=== PATIENT | female | born 1970 | race Caucasian/White ===

== ENCOUNTER 2017-05-26 21:29 | Emergency (ER) | payer OTHER ==
[~2017-05-26] VITALS: Ht 154.9 cm; Wt 88.2 kg
[~2017-05-26 21:29] MED LIST: BENA20 PO; LEVO150 PO; LOVA10TA2 PO; PANT40TA25 PO
[2017-05-26] MEDS ORDERED: LEVO200 PO (21:44)
[2017-05-26] MEDS ORDERED: OXYB5 PO (21:44)
[2017-05-26] MEDS ORDERED: IBUP-2070 PO (21:44)
[2017-05-26] MEDS ORDERED: LISI-660 PO (21:44)
[2017-05-26] MEDS ORDERED: MTH/1CAP7 PO (21:44)
[2017-05-26 22:09] LABS: BASOPHILS # (AUTO) 0.03 K/uL (0.00-0.20); BASOPHILS % (AUTO) 0.3 % (0.0-2.0); EOSINOPHILS # (AUTO) 0.44 K/uL (0.00-0.70); EOSINOPHILS % (AUTO) 4.79 % (1.0-6.0); HEMATOCRIT 38.9 % (36-46); LYMPHOCYTES # (AUTO) 2.3 K/uL (1.0-4.8); LYMPHOCYTES % (AUTO) 25.1 % (22.0-44.0); MEAN CORPUSCULAR HEMOGLOBIN 30.7 pg (26.0-34.0); MEAN CORPUSCULAR HGB CONC 33.3 G/dL (31.0-37.0); MEAN CORPUSCULAR VOLUME 92 fL (80-100); MONOCYTES # (AUTO) 0.6 K/uL (0.1-1.0); MONOCYTES % (AUTO) 6.4 % (2.0-9.0); NEUTROPHILS # (AUTO) 5.9 K/uL (1.8-7.7); NEUTROPHILS % (AUTO) 63.4 % (40.0-70.0); PLATELET COUNT (AUTO) 236 K/uL (150-450); RED BLOOD CELL COUNT(AUTO) 4.22 MIL/uL (4.00-5.20); RED CELL DISTRIBUTION WIDTH 17.9 % (11.5-14.5)
[2017-05-26 23:00] LABS: APPEARANCE,URINE CLEAR (CLEAR); BILIRUBIN,URINE NEGATIVE (NEGATIVE); GLUCOSE, URINE (UA) NEGATIVE (NEGATIVE); KETONES,URINE NEGATIVE (NEGATIVE); LEUKOCYTE ESTERASE ,URINE NEGATIVE (NEGATIVE); NITRATE,URINE NEGATIVE (NEGATIVE); OCCULT BLOOD,URINE NEGATIVE (NEGATIVE); PH,URINE 6.5 (5.0-8.0); PROTEIN,URINE NEGATIVE (NEGATIVE)
[2017-05-27 01:42] VITALS: BP 131/84
== END 2017-05-27 01:48 | disposition home or self-care (01) ==
LOC: EMS 21:30
DX: M54.5 Low back pain (principal); I10 Essential (primary) hypertension; F17.210 Nicotine dependence, cigarettes, uncomplicated; Z91.041 Radiographic dye allergy status; Z88.5 Allergy status to narcotic agent
CPT/HCPCS: 99284

== ENCOUNTER 2017-09-29 21:11 | Emergency (ER) | payer OTHER ==
[~2017-09-29] VITALS: Ht 154.9 cm; Wt 88.6 kg
[~2017-09-29 21:11] MED LIST changes: -BENA20 PO; +IBUP-2070 PO; -LEVO150 PO; +LEVO200 PO; +LISI-660 PO; -LOVA10TA2 PO; +MTH/1CAP7 PO; +OXYB5 PO; -PANT40TA25 PO
[2017-09-29] MEDS ORDERED: DEXTROSE 50%-WATER 25 GM/50 ML SYRINGE IVP ONE (22:45)
[2017-09-29 23:24] VITALS: BP 132/77
== END 2017-09-29 23:33 | disposition home or self-care (01) ==
LOC: EMS 21:12
DX: S63.502A Unspecified sprain of left wrist, initial encounter (principal); I10 Essential (primary) hypertension; E03.9 Hypothyroidism, unspecified; G43.909 Migraine, unspecified, not intractable, without status migrainosus; F17.210 Nicotine dependence, cigarettes, uncomplicated; Z88.5 Allergy status to narcotic agent; Z91.041 Radiographic dye allergy status; X58.XXXA Exposure to other specified factors, initial encounter; Y93.89 Activity, other specified; Y92.89 Other specified places as the place of occurrence of the external cause; Y99.8 Other external cause status
CPT/HCPCS: 99284

== ENCOUNTER 2022-06-29 23:47 | Emergency (ER) | payer OTHER ==
[~2022-06-29] VITALS: Ht 167.6 cm; Wt 109.1 kg
[~2022-06-29 23:47] MED LIST changes: +IBUP-1492 PO; -IBUP-2070 PO; -LISI-660 PO; +LISI-892 PO; -MTH/1CAP7 PO; -OXYB5 PO
[2022-06-29 23:56] VITALS: BP 173/90
[2022-06-30] MEDS ORDERED: CLON0.2T PO (00:10)
[2022-06-30] MEDS ORDERED: AMLO-258 PO (00:10)
[2022-06-30] MEDS ORDERED: HYDR25TA2 PO (00:10)
[2022-06-30] MEDS ORDERED: ASPI-1450 PO (00:10)
[2022-06-30] MEDS ORDERED: METO-558 PO (00:10)
[2022-06-30 00:16] LABS: COVID AG,FIA SOURCE NASAL SWAB
[2022-06-30 00:47] LABS: RAPID GROUP A STREP NEGATIVE (NEGATIVE)
[2022-06-30 00:55] LABS: INFLUENZA TYPE A NEGATIVE FOR TYPE A (NEGATIVE); INFLUENZA TYPE B NEGATIVE FOR TYPE B (NEGATIVE)
[2022-06-30] MEDS ORDERED: IBUPROFEN 600 MG TABLET PO ONE (02:45)
[2022-06-30] MEDS ORDERED: IBUP-1492 PO (03:23)
== END 2022-06-30 03:49 | disposition home or self-care (01) ==
LOC: EMS 23:48
DX: B34.9 Viral infection, unspecified (principal); I10 Essential (primary) hypertension; E03.9 Hypothyroidism, unspecified; G43.909 Migraine, unspecified, not intractable, without status migrainosus; N80.9 Endometriosis, unspecified; F17.210 Nicotine dependence, cigarettes, uncomplicated; Z90.49 Acquired absence of other specified parts of digestive tract; Z90.710 Acquired absence of both cervix and uterus; Z98.890 Other specified postprocedural states; Z91.040 Latex allergy status; Z88.8 Allergy status to other drugs, medicaments and biological substances; Z91.013 Allergy to seafood; Z20.822 Contact with and (suspected) exposure to COVID-19
CPT/HCPCS: 87430; 87804; 99283